=== PATIENT | female | born 1955 | race Caucasian/White ===

== ENCOUNTER 2017-04-22 05:16 | Day surgery (SDC) | payer OTHER ==
[~2017-04-22] VITALS: Ht 154.9 cm; Wt 74.8 kg
[~2017-04-22 05:16] MED LIST: GABAPENTIN300 MG PO; OMEPRAZOLE40 M1 PO; VENLAFAXINE225 MG PO
[2017-04-22] MEDS ORDERED: ELAVIL100 MG PO (05:48)
[2017-04-22] MEDS ORDERED: SEROQUEL100 MG PO (05:49)
[2017-04-22] MEDS ORDERED: VISTARIL50 MG PO (05:49)
[2017-04-22 05:51] VITALS: BP 140/100
[2017-04-22 10:00] VITALS: BP 130/92
[2017-04-22 10:25] VITALS: BP 134/90
== END 2017-04-22 10:40 | disposition home or self-care (01) ==
LOC: SDC 05:16
PROC: 08NF3ZZ Release Left Retina, Percutaneous Approach (ICD-10-PCS; principal; 2017-04-22)
PROC: 08QF3ZZ Repair Left Retina, Percutaneous Approach (ICD-10-PCS; principal; 2017-04-22)
PROC: 08B53ZZ Excision of Left Vitreous, Percutaneous Approach (ICD-10-PCS; principal; 2017-04-22)
DX: H33.42 Traction detachment of retina, left eye (principal); H43.392 Other vitreous opacities, left eye; H43.812 Vitreous degeneration, left eye; K21.9 Gastro-esophageal reflux disease without esophagitis; J44.9 Chronic obstructive pulmonary disease, unspecified; F17.200 Nicotine dependence, unspecified, uncomplicated; Z88.0 Allergy status to penicillin; Z88.2 Allergy status to sulfonamides
CPT/HCPCS: J0690; J1100; J1170; J2250; J2795; J3300